=== PATIENT | male | born 1945 | race Asian ===

== ENCOUNTER 2017-05-30 13:22 | Outpatient (CLI) | payer OTHER ==
[2017-05-30] MEDS ORDERED: ALPR0.5T24 PO (14:41)
[2017-05-30] MEDS ORDERED: ASPIRIN/ENTERIC81 MG PO (14:43)
[2017-05-30] MEDS ORDERED: DOXEPIN HCL50 MG PO (14:44)
[2017-05-30] MEDS ORDERED: HALO5INJ3 IM (14:45)
[2017-05-30] MEDS ORDERED: ZESTRIL40 MG PO (14:46)
[2017-05-30] MEDS ORDERED: SEROQUEL100 MG PO (14:47)
== END 2017-05-30 13:42 | disposition short-term general hospital (02) ==
LOC: AMB 13:22
DX: F03.91 Unspecified dementia, unspecified severity, with behavioral disturbance (principal)
CPT/HCPCS: A0425; A0429